=== PATIENT | female | born 1965 | race Caucasian/White ===

== ENCOUNTER 2020-03-09 14:07 | Outpatient (CLI) | payer OTHER ==
--- NOTE | 2020-03-09 14:46 | RAD ---
CERVICAL SPINE SERIES 3 VIEWS: Date: 03/09/2020 HISTORY: Neck pain, no injury. FINDINGS: Vertebral bodies are normal in height. Disc space height appears fairly well preserved with very mimi y osteophytic change. There are some moderate degenerative facet changes which are more right-sided. IMPRESSION: Arthritic changes of the spine, mainly related to degenerative facet change. POS: AH
== END 2020-03-09 14:08 | disposition home or self-care (01) ==
LOC: BICRAD 14:07
PROVIDERS: ATTEND Chiropractor
DX: M50.10 Cervical disc disorder with radiculopathy, unspecified cervical region (principal); M47.812 Spondylosis without myelopathy or radiculopathy, cervical region
CPT/HCPCS: 72040

== ENCOUNTER 2021-08-04 13:12 | Outpatient (CLI) | payer BC | END 2021-08-04 13:13 | disposition home or self-care (01) | LOC: BICMAMMO 13:12 | PROVIDERS: ATTEND Nurse Practitioner Family | DX: Z12.31 Encounter for screening mammogram for malignant neoplasm of breast (principal) | CPT/HCPCS: 77063; 77067 ==